=== PATIENT | female | born 1990 | race Caucasian/White ===

== ENCOUNTER 2018-03-01 05:15 | Inpatient (IN) | payer OTHER ==
[2018-03-01] MEDS ORDERED: OXYTOCIN 30 UNITS/LR 500 ML IV ×2 (06:00→07:00)
[2018-03-01] MEDS ORDERED: CARBOPROST 250 MCG INJ IM ×2 (06:00→14:00)
[2018-03-01] MEDS ORDERED: METHYLERGONOVINE 0.2 MG INJ IM ×2 (06:00→14:00)
[2018-03-01] MEDS ORDERED: MISOPROSTOL 200 MCG TAB PR ×2 (06:00→14:00)
[2018-03-01 06:26] LABS: ADD MAN DIFF? NO
[2018-03-01 06:28] LABS: BASOPHILS % 0.3 % (0.0-2.0); EOSINOPHILS % 0.5 % (0.0-7.0); HEMATOCRIT 39.1 % (37.0-47.0); HEMOGLOBIN 12.8 g/dl (12.0-16.0); LYMPHOCYTES # 2.7 10^3/ul (0.8-2.9); LYMPHOCYTES % 31.1 % (15.0-51.0); MEAN CORPUSCULAR HEMOGLOBIN 26.8 pg (29.0-33.0); MEAN CORPUSCULAR HGB CONC 32.7 g/dl (32.0-37.0); MEAN CORPUSCULAR VOLUME 81.8 fl (82.0-101.0); MEAN PLATELET VOLUME 12.1 fl (7.4-10.4); MONOCYTE # 0.7 10^3/ul (0.3-0.9); MONOCYTES % 8.1 % (0.0-11.0); NEUTROPHIL # 5.3 10^3/ul (1.6-7.5); NEUTROPHILS % 59.7 % (39.0-77.0); PLATELET COUNT 218 10^3/UL (140-415); RED BLOOD COUNT 4.78 10^6/ul (4.20-5.40)
[2018-03-01 06:28] LABS: WHITE BLOOD COUNT 8.8 10^3/ul (4.8-10.8)
[2018-03-01] MEDS: LACTATED RINGER'S 1,000 ML IV ×4 (06:31→18:44)
[2018-03-01 06:48] LABS: INR 0.92; PARTIAL THROMBOPLASTIN TIME 25.6 Sec (25.0-35.0); PROTIME 12.4 Sec (11.9-14.9)
[2018-03-01] MEDS ORDERED: EPHEDrine SULFATE 50 MG/5 ML SYG (07:00)
[2018-03-01 07:40] LABS: HEPATITIS B SURFACE ANTIGEN NEGATIVE (NEGATIVE)
[2018-03-01] MEDS ORDERED: CITRIC ACID/SODIUM CITRATE 15 ML CUP (07:43)
[2018-03-01] MEDS ORDERED: ONDANSETRON 4 MG INJ (07:43)
[2018-03-01] MEDS: ONDANSETRON 4 MG INJ IV ×3 (08:58→20:31)
[2018-03-01] MEDS: CITRIC ACID/SODIUM CITRATE 15 ML CUP PO (08:58)
[2018-03-01] MEDS ORDERED: PHENYLephrine (100 MCG/ML) 10ML SYG (09:27)
[2018-03-01] MEDS ORDERED: morphine SULFATE/PF (10 MG/10 ML) INJ (09:27)
[2018-03-01] MEDS ORDERED: BUPIVACAINE 0.75%/DEXT (SPINAL) 2 ML INJ (09:27)
[2018-03-01] MEDS ORDERED: OXYTOCIN 10 UNIT INJ (09:27)
[2018-03-01] MEDS: CEFAZOLIN 2 GM/50 ML (PMX) 50 ML IV (09:42)
[2018-03-01] MEDS ORDERED: DEXAMETHASONE 4 MG/ML 1 ML INJ (09:59)
[2018-03-01] MEDS ORDERED: KETOROLAC 30 MG INJ (09:59)
[2018-03-01] MEDS ORDERED: METOCLOPRAMIDE 10 MG INJ (09:59)
[2018-03-01] MEDS ORDERED: HYDROCODONE/APAP (5/325) TAB PO (10:30)
[2018-03-01] MEDS ORDERED: NALBUPHINE HCL (10 MG/1 ML) INJ IV (10:30)
[2018-03-01] MEDS ORDERED: DIPHENHYDRAMINE 50 MG INJ IV ×2 (10:30→14:00)
[2018-03-01] MEDS ORDERED: HYDROmorphONE 0.5 MG/0.5 ML SYG IV ×2 (10:30)
[2018-03-01] MEDS ORDERED: ACETAMINOPHEN 500 MG TAB PO (10:30)
[2018-03-01] MEDS ORDERED: morphine 2 MG INJ IV ×2 (10:30)
[2018-03-01] MEDS ORDERED: NALOXONE (0.4 MG/ML) INJ IV (10:30)
[2018-03-01] MEDS: OXYTOCIN 30 UNITS/LR 500 ML IV ×2 (11:00→15:13)
[2018-03-01] MEDS ORDERED: ZOLPIDEM 5 MG TAB PO (14:00)
[2018-03-01] MEDS: LANOLIN 7 GM TUBE TOP (15:03)
[2018-03-01] MEDS: SENNA/DOCUSATE NA (8.6MG/50MG) TAB PO (21:00)
[2018-03-01 21:58] LABS: RAPID PLASMA REAGIN NONREACTIVE (NR)
[2018-03-02] MEDS: KETOROLAC 30 MG INJ IV (02:17)
[2018-03-02 08:52] LABS: ADD MAN DIFF? NO
[2018-03-02 09:08] LABS: BASOPHILS % 0.3 % (0.0-2.0); EOSINOPHILS % 0.2 % (0.0-7.0); HEMATOCRIT 31.7 % (37.0-47.0); HEMOGLOBIN 10.3 g/dl (12.0-16.0); LYMPHOCYTES # 2.7 10^3/ul (0.8-2.9); LYMPHOCYTES % 24.7 % (15.0-51.0); MEAN CORPUSCULAR HEMOGLOBIN 27.1 pg (29.0-33.0); MEAN CORPUSCULAR HGB CONC 32.5 g/dl (32.0-37.0); MEAN CORPUSCULAR VOLUME 83.4 fl (82.0-101.0); MEAN PLATELET VOLUME 12.1 fl (7.4-10.4); MONOCYTE # 0.6 10^3/ul (0.3-0.9); MONOCYTES % 5.4 % (0.0-11.0); NEUTROPHIL # 7.4 10^3/ul (1.6-7.5); NEUTROPHILS % 68.9 % (39.0-77.0); PLATELET COUNT 184 10^3/UL (140-415); RED CELL DISTRIBUTION WIDTH 15.5 % (11.5-14.5)
[2018-03-02 09:08] LABS: WHITE BLOOD COUNT 10.8 10^3/ul (4.8-10.8)
[2018-03-02] MEDS: SENNA/DOCUSATE NA (8.6MG/50MG) TAB PO ×2 (09:37→21:26)
[2018-03-02] MEDS: IBUPROFEN 600 MG TAB PO ×3 (12:26→23:23)
[2018-03-02] MEDS: OXYCODONE/ACETAMINOPHEN (5/325) TAB PO (14:41)
[2018-03-03] MEDS: OXYCODONE/ACETAMINOPHEN (5/325) TAB PO ×2 (00:46→12:39)
[2018-03-03] MEDS: IBUPROFEN 600 MG TAB PO ×4 (05:55→23:31)
[2018-03-03] MEDS: SENNA/DOCUSATE NA (8.6MG/50MG) TAB PO ×2 (09:35→21:27)
[2018-03-04] MEDS: OXYCODONE/ACETAMINOPHEN (5/325) TAB PO (03:46)
[2018-03-04] MEDS: IBUPROFEN 600 MG TAB PO ×2 (05:38→11:41)
[2018-03-04] MEDS: SENNA/DOCUSATE NA (8.6MG/50MG) TAB PO (08:04)
[2018-03-04] MEDS: DIPHTH/TET/ACEL PERTUSS (ADULT) 0.5 ML VIAL IM* (11:41)
== END 2018-03-04 15:25 | disposition home or self-care (01) | DRG 766 ==
LOC: L-D 05:15 → PP1 13:31
PROVIDERS: Obstetrics & Gynecology
PROC: 10D00Z1 Extraction of Products of Conception, Low, Open Approach (ICD-10-PCS; principal; 2018-03-01 07:30)
DX: O34.219 Maternal care for unspecified type scar from previous cesarean delivery (principal); Z3A.39 39 weeks gestation of pregnancy; Z37.0 Single live birth; Z23 Encounter for immunization
CPT/HCPCS: 76815; 85025; 85610; 85730; 86592; 86850; 86900; 86901; 87340; 99464